=== PATIENT | female | born 1945 | race Caucasian/White ===

== ENCOUNTER → 2016-06-28 | Outpatient (CLI) | payer OTHER ==
[~2016-06-28] MED LIST: ASCO10003 PO; B-COCAP2 PO; CHOLTAB3 PO; IBUP-1428 PO; IRON1TAB4 PO; OMEG10007 PO; VITA100C4 PO
--- NOTE | 2016-06-28 16:38 | MAMMOGRAPHY REPORT ---
BILATERAL DIGITAL DIAGNOSTIC MAMMOGRAM TOMOSYNTHESIS WITH CAD: 06/28/2016 CLINICAL HISTORY: 71 year-old woman presents for bilateral mammography. She is 1 year status post l umpectomy and radiation therapy for right breast cancer. She has a history of remote right breast c ancer as well approximately 11 years ago. Routine screening of the left breast. TECHNIQUE: Bilateral CC and MLO 2-D digital and tomosynthesis images, 2-D exaggerated lateral right CC, spot magnification right CC and ML views were obtained. Current study was also evaluated with a Computer Aided Detection (CAD) system. COMPARISON: Comparison is made to exams dated: 12/29/2015 mammogram, 05/23/2015 ultrasound biopsy, 03/2016 mammogram, and 05/09/2015 mammogram - [facility]. BREAST COMPOSITION: There are scattered areas of fibroglandular density in both breasts. FINDINGS: There is asymmetry of the size of the breasts, with mild diffuse trabecular edema and ski n thickening of the right breast, likely related to prior treatment. There are stable surgical clip s in the 3:00 to 4:00 right breast and also expected architectural distortion in the 11:00 to 12:00 breast at the site of recent lumpectomy. There are a few stable groupings of benign-appearing punct ate microcatheter indications in the right breast. Stable benign appearing circumscribed subcentime ter reniform shaped masses in the left breast. No new suspicious mass, architectural distortion or c luster of microcalcifications is seen bilaterally. IMPRESSION: ACR-BI-RADS CATEGORY 3: PROBABLY BENIGN Expected post treatment changes in the right breast, without definite mammographic evidence of malig izzy bilaterally. Another close follow-up of the right breast is recommended in 6 months. Routine left mammography is recommended in 12 months. These results and recommendations were discussed wit h the patient at the time of the exam. Approximately 10% of breast cancers are not detected with mammography. A negative mammographic repor t should not delay biopsy if a clinically suggestive mass is present. Aidee Jasmine M.D. ay/:06/28/2016 14:52:56 Shopper Insights Manager: Inessa Alexis RT(R)(Migel), [facility] letter sent: Personal History 3 BI-RADS Code: ACR-BI-RADS Category 3: Probably Benign
== END | disposition home or self-care (01) ==
LOC: C.MAMM 13:40
PROVIDERS: ATTEND Radiology Radiation Oncology
DX: Z85.3 Personal history of malignant neoplasm of breast (principal); Z08 Encounter for follow-up examination after completed treatment for malignant neoplasm

== ENCOUNTER → 2016-07-16 | Outpatient (CLI) | payer OTHER | END | disposition home or self-care (01) | LOC: C.LABSPEC 17:50 | PROVIDERS: ATTEND Family Medicine | DX: N39.0 Urinary tract infection, site not specified (principal) ==

== ENCOUNTER → 2016-08-25 | Outpatient (CLI) | payer OTHER ==
--- NOTE | 2016-08-25 17:25 | DIAGNOSTIC IMAGING REPORT ---
CT SCAN OF THE CHEST WITHOUT IV CONTRAST CLINICAL HISTORY: Pulmonary nodule. COMPARISON STUDY: Chest x-ray dated 11/14/2008. Chest CT scans dated 01/14/2016 and 07/18/2015. TECHNIQUE: CT scan of the thorax was performed from the thoracic inlet to the upper abdomen. Images are reviewed in the axial, sagittal, and coronal planes. IV contrast was not administered for this examination as per the referring clinician. CT DOSE: 209.87 mGy.cm FINDINGS: Thyroid: Imaged portions of the thyroid gland are normal in size and attenuation. Thoracic aorta: There is mild atherosclerotic calcification of the thoracic aorta, which is normal in caliber and demonstrates standard 3-vessel arch anatomy. Heart: The heart is normal in size and without pericardial effusion. There are coronary artery calcifications. Lungs and pleural spaces: Emphysema is observed. The trachea appears clear. Minimal secretions are seen within the right mainstem bronchus. There is no airspace consolidation typical for pneumonia or pleural effusion. Subpleural change/scarring within the anterior right lung is likely related to previous radiation therapy. Linear atelectasis is present both lung bases. There are scattered calcified granulomas. A 3 mm pleural-based nodule in the right lower lobe adjacent to the major fissure seen on image #204 is unchanged from 07/18/2015. A 5 mm nodule in the lingula seen on image #166 is also unchanged. No new pulmonary lesions are identified. Mediastinum: There is no mediastinal lymphadenopathy. Alcira: Not well assessed without IV contrast. Axillae: There is no axillary lymphadenopathy. Upper abdomen: Partially visualized upper abdominal viscera is within normal limits. Skeletal structures: The skeletal structures are osteopenic. No lytic or blastic bony lesions are seen. There are numerous healed left-sided rib fractures. Soft tissues: Postoperative change and dermal thickening are suggested in the right breast. IMPRESSION: 1. Emphysema. 2. There is no airspace consolidation typical for pneumonia or pleural effusion. 3. A 5 mm nodule in the lingula and a 3 mm pleural-based nodule in the right lower lobe are unchanged dating back to 07/18/2015. These are pathologically indeterminant but of low suspicion. 1 additional follow-up examination one years time is recommended to document 2 years of stability 4. Postoperative change and scarring are suggested in the right breast. Additionally, subpleural scarring in the anterior right lung is likely related to previous radiation treatment. Correlation with the patient's clinical and oncological history will be required. 5. Additional findings as above. Electronically signed by: Scottie Johnson M.D. 08/25/2016 5:24 PM Dictated Date/Time: 08/25/2016 5:15 PM
== END | disposition home or self-care (01) ==
LOC: C.CTS 16:48
PROVIDERS: ATTEND Physician Assistant
DX: R91.1 Solitary pulmonary nodule (principal); J43.9 Emphysema, unspecified

== ENCOUNTER → 2016-12-29 | Outpatient (CLI) | payer OTHER ==
--- NOTE | 2016-12-29 15:18 | MAMMOGRAPHY REPORT ---
UNILATERAL RIGHT DIGITAL DIAGNOSTIC MAMMOGRAM TOMOSYNTHESIS WITH CAD AND TARGETED RIGHT ULTRASOUND: CLINICAL HISTORY: 71-year-old woman with a personal history of right breast cancer status post lumpec aubrey and radiation presents for close follow-up in the right breast after treatment. At the time of diagnostic evaluation, the patient reported a new lump and pain in the inferior right breast. TECHNIQUE: Right CC and MLO 2-D and tomosynthesis images, spot magnification right CC and ML views we re obtained. Current study was also evaluated with a Computer Aided Detection (CAD) system. COMPARISON: Comparison is made to exams dated: 06/28/2016 mammogram, 12/29/2015 mammogram, 05/23/2015 u ltrasound biopsy, 05/23/2015 mammogram, 05/09/2015 ultrasound, and 05/09/2015 mammogram - [facility]. BREAST COMPOSITION: There are scattered areas of fibroglandular density in the right breast. FINDINGS: There is expected architectural distortion in the 12:00 middle to anterior right breast, at the site of prior lumpectomy. Surgical clips remain in place in the medial right breast, from prior remote surgery. There are a few stable benign-appearing round microcalcifications. No suspicious m ass, architectural distortion or cluster of microcalcifications is seen. Targeted ultrasound was performed in the area of half dollar sized lump and pain pointed out by the p atient (6:00 and 7:00 axes of the right breast). On ultrasound in the area of concern, sonographical ly normal tissue is seen without a discrete solid or cystic mass. IMPRESSION: ACR-BI-RADS CATEGORY 3: PROBABLY BENIGN, TARGETED ULTRASOUND ACR-BI-RADS CATEGORY 3: PRO BABLY BENIGN 1. Stable posttreatment changes in the right breast, without definite mammographic evidence of malig izzy. Recommend another close follow-up right diagnostic mammogram including tomosynthesis images a nd possible ultrasound in 6 months to ensure longer stability after treatment. Annual left mammograp hy will also be due at that time. 2. No suspicious mammographic or targeted sonographic abnormality in the area of lump and pain in th e 6:00 and 7:00 axes of the right breast. Therefore, continued clinical follow-up is recommended. These results and recommendations were discussed with the patient at the time of the exam. Approximately 10% of breast cancers are not detected with mammography. A negative mammographic report should not delay biopsy if a clinically suggestive mass is present. Aidee Jasmine M.D. ay/:12/29/2016 11:30:48 Whizzer: Inessa Holley, [facility] letter sent: Follow Up Recommended 3 BI-RADS Code: ACR-BI-RADS Category 3: Probably Benign Ultrasound BI-RADS: ACR-BI-RADS Category 3: Pr obably Benign
== END | disposition home or self-care (01) ==
LOC: C.MAMM 10:47
PROVIDERS: ATTEND Physician Assistant Medical
DX: Z08 Encounter for follow-up examination after completed treatment for malignant neoplasm (principal); Z85.3 Personal history of malignant neoplasm of breast; N63 Unspecified lump in breast; N64.4 Mastodynia

== ENCOUNTER → 2017-06-28 | Outpatient (CLI) | payer OTHER ==
--- NOTE | 2017-06-28 14:58 | MAMMOGRAPHY REPORT ---
BILATERAL DIGITAL DIAGNOSTIC MAMMOGRAM TOMOSYNTHESIS WITH CAD: 06/28/2017 CLINICAL HISTORY: History of right breast cancer status post lumpectomy and radiation therapy. The p atient denies any new lumps or other new complaints. TECHNIQUE: Breast tomosynthesis in addition to standard 2D mammography was performed. Current study was also evaluated with a Computer Aided Detection (CAD) system. Bilateral CC and MLO 2D and tomosyn thesis images and spot magnification right CC and LM views were obtained. COMPARISON: Comparison is made to exams dated: 12/29/2016 ultrasound, 12/29/2016 mammogram, 06/28/2016 mammogram, 05/23/2015 mammogram - [facility], 11/28/2008, and 05/09/2015 mammogram - [facility]. BREAST COMPOSITION: There are scattered areas of fibroglandular density in both breasts. FINDINGS: There is stable postsurgical architectural distortion in the right 12:00 breast at the site of prior lumpectomy. There are also stable postsurgical changes in the right medial breast from rem ote surgery. Remainder of both breasts are stable compared to prior exams, without suspicious masses , calcifications, or areas of architectural distortion noted. A few scattered bilateral benign-appea ring calcifications are not significantly changed. IMPRESSION: ACR BI-RADS CATEGORY 2: BENIGN Stable posttreatment changes in the right breast, without mammographic evidence of malignancy in eith er breast. A 1 year screening mammogram is recommended. The patient has been verbally notified of the results. Approximately 10% of breast cancers are not detected with mammography. A negative mammographic report should not delay biopsy if a clinically suggestive mass is present. Nabila Castillo M.D. /:06/28/2017 12:10:38 Pot Pusher: Jean Carlos LOPEZ(R)(M), [facility] letter sent: Normal 1/2 BI-RADS Code: ACR BI-RADS Category 2: Benign
== END | disposition home or self-care (01) ==
LOC: C.MAMM 11:28
PROVIDERS: ATTEND Physician Assistant Medical
DX: R92.8 Other abnormal and inconclusive findings on diagnostic imaging of breast (principal)

== ENCOUNTER → 2017-07-28 | Outpatient (CLI) | payer OTHER ==
[2017-07-28 18:47] LABS: BASO % 0.7 %; BASO ABS # 0.06 K/uL (0-0.2); EOS % 2.9 %; EOS ABS # 0.26 K/uL (0-0.5); HEMATOCRIT 40.9 % (37-47); HEMOGLOBIN 14.4 g/dL (12.0-16.0); IG# 0.02 K/uL (0.00-0.02); LYMPH ABS # 3.45 K/uL (1.2-3.4); MEAN CELL VOLUME 93.4 fL (80-100); MEAN CORPUSCULAR HEMOGLOBIN 32.9 pg (25-34); MEAN CORPUSCULAR HGB CONC 35.2 g/dl (32-36); MEAN PLATELET VOLUME 10.2 fL (7.4-10.4); MONO % 9.6 %; MONO ABS # 0.87 K/uL (0.11-0.59); NEUT % 48.6 %; NEUT ABS # 4.43 K/uL (1.4-6.5); PLATELET COUNT 257 K/uL (130-400); RED CELL DISTRIBUTION WIDTH CV 12.2 % (11.5-14.5); RED CELL DISTRIBUTION WIDTH SD 41.4 fL (36.4-46.3); WHITE BLOOD COUNT 9.09 K/uL (4.8-10.8)
[2017-07-28 19:02] LABS: ALT/SGPT 18 U/L (12-78); AST/SGOT 13 U/L (15-37); BLOOD UREA NITROGEN 13 mg/dl (7-18); CALCIUM 9.7 mg/dl (8.5-10.1); CARBON DIOXIDE 28 mmol/L (21-32); CREATININE 0.74 mg/dl (0.60-1.20); GLUCOSE 93 mg/dl (70-99); POTASSIUM 3.6 mmol/L (3.5-5.1); SODIUM 139 mmol/L (136-145)
[2017-07-28 19:13] LABS: ALKALINE PHOSPHATASE 91 U/L (45-117); TOTAL PROTEIN 7.3 gm/dl (6.4-8.2)
== END | disposition home or self-care (01) ==
LOC: C.LAB 18:14
PROVIDERS: ATTEND Family Medicine
DX: R42 Dizziness and giddiness (principal)